=== PATIENT | female | born 1995 | race Caucasian/White ===

== ENCOUNTER 2022-08-19 13:26 | Emergency (ER) | payer OTHER ==
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
[2022-08-19 14:34] VITALS: PULSE 88
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
[2022-08-19 17:05] VITALS: BP 107/69; O2SAT 98
== END 2022-08-19 17:05 | disposition home or self-care (01) ==
LOC: ED 13:26
DX: M62.838 Other muscle spasm (principal); V87.7XXA Person injured in collision between other specified motor vehicles (traffic), initial encounter; H53.8 Other visual disturbances; M54.2 Cervicalgia; M54.6 Pain in thoracic spine
CPT/HCPCS: 70450; 71250; 72125; 72128; 99283